=== PATIENT | male | born 1985 | race Caucasian/White ===

== ENCOUNTER 2016-09-18 22:29 | Emergency (ER) | payer OTHER ==
[~2016-09-18] VITALS: Ht 190.5 cm; Wt 183.0 kg
[2016-09-18 22:35] VITALS: BP 141/84; PULSE 86; RESP 20; O2SAT 100
[2016-09-18] MEDS ORDERED: HYDROcodone-APAP 7.5-325 mg Tablet PO ONE (23:05)
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
[2016-09-18] MEDS ORDERED: HYDR-4003 PO (23:15)
[2016-09-18] MEDS ORDERED: _HYDROcodone/APAP 5-325 mg Tablet PO PRN ×2 (23:35)
[2016-09-18] MEDS ORDERED: TdaP Vaccine 0.5 mL Inj IM ONE (23:35)
[2016-09-18] MEDS ORDERED: Mupirocin 2% 22 Gm Ointment TOPICAL ONE (23:35)
[2016-09-19] MEDS ORDERED: HYDR-4003 PO (00:02)
[2016-09-19 01:00] VITALS: BP 127/87; PULSE 69; RESP 16; O2SAT 97
== END 2016-09-19 01:00 | disposition home or self-care (01) ==
LOC: SED 22:29
DX: T22.20XA Burn of second degree of shoulder and upper limb, except wrist and hand, unspecified site, initial encounter (principal); T20.10XA Burn of first degree of head, face, and neck, unspecified site, initial encounter; T20.17XA Burn of first degree of neck, initial encounter; T31.10 Burns involving 10-19% of body surface with 0% to 9% third degree burns; X08.8XXA Exposure to other specified smoke, fire and flames, initial encounter; Y93.89 Activity, other specified; Y92.810 Car as the place of occurrence of the external cause; Y99.8 Other external cause status; F17.200 Nicotine dependence, unspecified, uncomplicated; Z23 Encounter for immunization
CPT/HCPCS: 16020; 90471; 90715; 96372; 99284; J1885